=== PATIENT | male | born 2000 | race Caucasian/White ===

== ENCOUNTER 2021-08-20 12:20 | Emergency (ER) | payer OTHER ==
[~2021-08-20] VITALS: Ht 182.9 cm; Wt 100.2 kg
[2021-08-20 12:38] VITALS: BP 147/75
--- NOTE | 2021-08-20 12:42 | NUR ---
PT TO WAIT IN LOBBY.
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
--- NOTE | 2021-08-20 13:16 | NUR ---
JESUS ALBERTO MORALES ATTEMPTED TO ASSESS PT, NOT FOUND IN LOBBY/OUTSIDE.
--- NOTE | 2021-08-20 13:57 | NUR ---
2ND ATTEMPT, JESUS ALBERTO MORALES ATTEMPTED TO ASSESS PT, NOT FOUND IN LOBBY/OUTSIDE.
--- NOTE | 2021-08-20 13:57 | NUR ---
PATIENT LEFT WITHOUT BEING SEEN BY DR CARCAMO. NO FURTHER CARE PROVIDED FOR PATIENT.
== END 2021-08-20 13:16 | disposition left against medical advice (07) ==
LOC: MED 12:20
DX: R21 Rash and other nonspecific skin eruption (principal); Z53.21 Procedure and treatment not carried out due to patient leaving prior to being seen by health care provider